=== PATIENT | female | born 1990 | race Caucasian/White ===

== ENCOUNTER 2024-07-18 13:44 | Inpatient (IN) | payer OTHER ==
[2024-07-18 14:20] VITALS: BMI 18.4
[2024-07-18] MEDS ORDERED: methaDONE HCL 10 MG TABLET (FOR DETOX USE ONLY) PO PRN (14:36)
[2024-07-18] MEDS ORDERED: P-EPHED 60MG/TRIPROLIDI 2.5MG TABLET PO PRN (14:40)
[2024-07-18] MEDS ORDERED: NICOTINE POLACRILEX 2 MG LOZENGE BC PRN (14:40)
[2024-07-18] MEDS ORDERED: POLYETHYLENE GLYCOL (HEALTHYLAX) 3350 17 GM PACKET PO PRN (14:40)
[2024-07-18] MEDS ORDERED: MAGNESIUM HYDROX 2400MG/30ML ORAL SUSPENSION 30 ML CUP PO PRN (14:40)
[2024-07-18] MEDS ORDERED: guaiFENesin 600 MG TABLET.ER (FP) PO PRN (14:40)
[2024-07-18] MEDS ORDERED: BENZOCAINE/MENTHOL (CHLORASEPTIC ) LOZENGE MM PRN (14:40)
[2024-07-18] MEDS ORDERED: DICYCLOMINE HCL 10 MG CAPSULE PO PRN (14:40)
[2024-07-18] MEDS ORDERED: ACETAMINOPHEN 325 MG TABLET (FP) PO PRN (14:40)
[2024-07-18] MEDS ORDERED: NALOXONE (NARCAN) HCL 4 MG/0.1 ML SPRAY NS PRN (14:40)
[2024-07-18] MEDS ORDERED: IBUPROFEN 400 MG TABLET (FP) PO PRN (14:40)
[2024-07-18] MEDS ORDERED: BENZONATATE 200 MG CAPSULE PO PRN (14:40)
[2024-07-18] MEDS ORDERED: chlordiazePOXIDE HCL 25 MG CAPSULE ONE (15:16)
[2024-07-18] MEDS ORDERED: cloNIDine HCL 0.1 MG TABLET ONE (15:17)
[2024-07-18] MEDS ORDERED: methaDONE HCL 10 MG TABLET (FOR DETOX USE ONLY) ONE (15:17)
[2024-07-18] MEDS ORDERED: levETIRAcetam 500 MG TABLET (FP) PO ONE (15:17)
[2024-07-18] MEDS: methaDONE HCL 10 MG TABLET (FOR DETOX USE ONLY) PO ONE (15:21)
[2024-07-18] MEDS: chlordiazePOXIDE HCL 25 MG CAPSULE PO ONE (15:26)
[2024-07-18] MEDS: cloNIDine HCL 0.1 MG TABLET PO PRN (15:26)
[2024-07-18] MEDS: levETIRAcetam 500 MG TABLET (FP) PO SCH (15:27)
[2024-07-18] MEDS: chlordiazePOXIDE HCL 25 MG CAPSULE PO SCH (17:11)
[2024-07-18] MEDS: BISMUTH SUBSALICYLATE 524 MG/30 ML PO PRN (17:20)
[2024-07-18] MEDS: ONDANSETRON *ODT* 4 MG TABLET SL PRN (20:10)
[2024-07-18] MEDS: METHOCARBAMOL 500 MG TABLET PO PRN (20:34)
[2024-07-18] MEDS: NICOTINE POLACRILEX 2 MG GUM BUC PRN (21:14)
[2024-07-18] MEDS: MELATONIN 5 MG TABLETS PO SCH (22:35)
[2024-07-18] MEDS: IBUPROFEN 600 MG TABLET (FP) PO PRN (22:35)
[2024-07-18] MEDS: THIAMINE 100 MG TABLET PO SCH (22:35)
[2024-07-18] MEDS: LOPERAMIDE HCL 2 MG CAPSULE PO PRN (23:29)
[2024-07-19] MEDS: TRIMETHOBENZAMIDE HCL 200MG/2ML INJ IM PRN (05:57)
[2024-07-19] MEDS: methaDONE HCL 10 MG TABLET (FOR DETOX USE ONLY) PO ONE (09:37)
[2024-07-19] MEDS: PRENATAL VITAMINS W/ FOLIC ACID TABLET (FP) PO SCH (09:37)
[2024-07-19] MEDS: NICOTINE 7 MG/24 HOURS TOPICAL PATCH TD SCH (09:38)
[2024-07-19 09:39] LABS: POTASSIUM 3.7 mmol/L (3.5-5.1)
[2024-07-19 09:43] LABS: HEMOGLOBIN 13.5 GM/dL (10.7-15.3); MCH 28.9 pg (25.7-33.7); MCHC 32.8 g/dl (32.0-36.0); MEAN CELL VOLUME 87.9 fl (80-96); MEAN PLT VOLUME 7.8 fl (7.5-11.1); PLATELET COUNT 337 10^3/uL (134-434); RBC 4.66 M/mm3 (3.60-5.2); RDW 15.2 % (11.6-15.6); WHITE BLOOD COUNT 9.2 K/mm3 (4.0-10.0)
[2024-07-19 09:56] LABS: ALBUMIN 3.3 g/dl (3.4-5.0); BLOOD UREA NITROGEN 11.3 mg/dL (7-18); CALCIUM 9.2 mg/dL (8.5-10.1)
[2024-07-19 09:59] LABS: CREATININE 0.7 mg/dL (0.55-1.3)
[2024-07-19 10:01] LABS: BILIRUBIN,TOTAL 0.8 mg/dL (0.2-1); TOT PROT 7.9 g/dl (6.4-8.2)
[2024-07-19] MEDS: cloNIDine HCL 0.1 MG TABLET PO SCH (10:21)
[2024-07-19] MEDS: methaDONE HCL 10 MG TABLET PO ONE (10:21)
[2024-07-19] MEDS: chlordiazePOXIDE HCL 25 MG CAPSULE PO PRN (21:28)
[2024-07-19] MEDS: SUVOREXANT 10 MG TABLET PO PRN (21:42)
[2024-07-20] MEDS: chlordiazePOXIDE HCL 25 MG CAPSULE PO SCH (04:04)
[2024-07-20] MEDS: methaDONE 40 MG, methaDONE 20 MG PO ONE (09:06)
[2024-07-20] MEDS ORDERED: methaDONE HCL 10 MG TABLET PO ONE (10:00)
[2024-07-20] MEDS ORDERED: COLLOIDAL OATMEAL 1 BAR EACH TP PRN (10:10)
[2024-07-20] MEDS ORDERED: diazePAM 5 MG TABLET PO PRN (10:16)
[2024-07-20] MEDS: diazePAM 5 MG TABLET PO PRN (11:23)
[2024-07-20] MEDS: PHENAZOPYRIDINE HCL 100 MG TABLET (FP) PO ONE (12:18)
[2024-07-20] MEDS: diazePAM 5 MG TABLET PO SCH (14:02)
[2024-07-20 18:55] LABS: URINE APPEARANCE CLEAR; URINE BILIRUBIN NEGATIVE (NEGATIVE); URINE COLOR YELLOW; URINE GLUCOSE (UA) NEGATIVE (NEGATIVE); URINE KETONE NEGATIVE (NEGATIVE); URINE LEUK ESTERASE NEGATIVE (NEGATIVE); URINE NITRITE NEGATIVE (NEGATIVE); URINE PROTEIN NEGATIVE (NEGATIVE); URINE UROBILINOGEN 0.2 mg/dL (0.2-1.0)
[2024-07-20] MEDS: SUVOREXANT 15 MG TABLET PO PRN (22:29)
[2024-07-21] MEDS ORDERED: chlordiazePOXIDE HCL 10 MG CAPSULE PO PRN
[2024-07-21] MEDS ORDERED: cloNIDine HCL 0.1 MG TABLET PO PRN
[2024-07-21] MEDS ORDERED: chlordiazePOXIDE HCL 10 MG CAPSULE PO SCH (05:00)
[2024-07-21] MEDS: diazePAM 5 MG TABLET PO SCH (06:36)
[2024-07-21] MEDS: methaDONE 40 MG, methaDONE 30 MG PO ONE (09:11)
[2024-07-21] MEDS ORDERED: methaDONE HCL 10 MG TABLET (FOR DETOX USE ONLY) PO ONE (10:00)
[2024-07-21] MEDS: FLUCONAZOLE 50 MG TABLET PO ONE (12:51)
[2024-07-21] MEDS: MINERAL OIL/PETROLAT/WATER TOPICAL CREAM 113 GM JAR TP SCH (13:12)
[2024-07-21] MEDS: ONDANSETRON *ODT* 4 MG TABLET SL PRN (13:28)
[2024-07-21] MEDS: CLOTRIMAZOLE 1% VAGINAL CREAM WITH APPLICATOR 45 GM TUBE VG SCH (23:20)
[2024-07-22] MEDS ORDERED: chlordiazePOXIDE HCL 10 MG CAPSULE PO SCH (05:00)
[2024-07-22] MEDS: diazePAM 5 MG TABLET PO ONE (06:19)
[2024-07-22] MEDS: methaDONE HCL 40 MG DISPERSABLE TABLET PO ONE (09:16)
[2024-07-22] MEDS: MAG HYDROX/AL HYDROX/SIMETH 30 ML UNIT-DOSE CUP PO PRN (11:21)
[2024-07-23] MEDS ORDERED: chlordiazePOXIDE HCL 10 MG CAPSULE PO ONE (05:00)
[2024-07-23] MEDS: levETIRAcetam 500 MG TABLET (FP) PO ONE (08:33)
[2024-07-23] MEDS: methaDONE 80 MG, methaDONE 10 MG PO ONE (09:03)
[2024-07-23 09:17] VITALS: RESP 18
[2024-07-23] MEDS ORDERED: methaDONE HCL 10 MG TABLET (FOR DETOX USE ONLY) PO ONE (10:00)
[2024-07-23] MEDS ORDERED: methaDONE 80 MG, methaDONE 10 MG PO ONE (10:00)
[2024-07-23 13:04] VITALS: BP 98/63; PULSE 76; TEMP 97.8
== END 2024-07-23 14:38 | disposition home or self-care (01) | DRG 773 ==
LOC: YASAS 13:44 → Y6N 14:55
PROVIDERS: ADMIT Allergy & Immunology; ATTEND Allergy & Immunology
PROC: HZ2ZZZZ Detoxification Services for Substance Abuse Treatment (ICD-10-PCS; principal; 2024-07-18)
DX: F11.23 Opioid dependence with withdrawal (principal); F13.230 Sedative, hypnotic or anxiolytic dependence with withdrawal, uncomplicated; F14.20 Cocaine dependence, uncomplicated; F15.10 Other stimulant abuse, uncomplicated; F17.210 Nicotine dependence, cigarettes, uncomplicated; F19.282 Other psychoactive substance dependence with psychoactive substance-induced sleep disorder; F19.280 Other psychoactive substance dependence with psychoactive substance-induced anxiety disorder; F19.24 Other psychoactive substance dependence with psychoactive substance-induced mood disorder; F43.10 Post-traumatic stress disorder, unspecified; F41.9 Anxiety disorder, unspecified; G40.909 Epilepsy, unspecified, not intractable, without status epilepticus; N89.8 Other specified noninflammatory disorders of vagina; R63.6 Underweight; Z68.1 Body mass index [BMI] 19.9 or less, adult
CPT/HCPCS: 36415; 80053; 80305; 80307; 81003; 81025; 85027; 86780; 93005; 93010; Q0162

== ENCOUNTER 2024-07-23 14:32 | Inpatient (IN) | payer OTHER ==
[2024-07-23] MEDS ORDERED: NALOXONE (NARCAN) HCL 4 MG/0.1 ML SPRAY NS PRN (14:34)
[2024-07-23] MEDS ORDERED: guaiFENesin 600 MG TABLET.ER (FP) PO PRN (14:34)
[2024-07-23] MEDS ORDERED: LOPERAMIDE HCL 2 MG CAPSULE PO PRN (14:34)
[2024-07-23] MEDS ORDERED: ACETAMINOPHEN 325 MG TABLET (FP) PO PRN (14:34)
[2024-07-23] MEDS ORDERED: MAGNESIUM HYDROX 2400MG/30ML ORAL SUSPENSION 30 ML CUP PO PRN (14:34)
[2024-07-23] MEDS ORDERED: hydrOXYzine PAMOATE 25 MG CAPSULE (FP) PO PRN (14:34)
[2024-07-23] MEDS ORDERED: MAG HYDROX/AL HYDROX/SIMETH 30 ML UNIT-DOSE CUP PO PRN (14:34)
[2024-07-23] MEDS ORDERED: BENZOCAINE/MENTHOL (CHLORASEPTIC ) LOZENGE MM PRN (14:34)
[2024-07-23] MEDS ORDERED: BENZONATATE 200 MG CAPSULE PO PRN (14:34)
[2024-07-23] MEDS: NICOTINE POLACRILEX 2 MG GUM BUC PRN (17:35)
[2024-07-23] MEDS: levETIRAcetam 500 MG TABLET (FP) PO SCH (22:24)
[2024-07-23] MEDS: MELATONIN 5 MG TABLETS PO SCH (22:24)
[2024-07-23] MEDS: THIAMINE 100 MG TABLET PO SCH (22:24)
[2024-07-24] MEDS: methaDONE 80 MG, methaDONE 10 MG PO SCH (05:40)
[2024-07-24] MEDS ORDERED: methaDONE HCL 10 MG TABLET PO SCH (06:00)
[2024-07-24] MEDS: PRENATAL VITAMINS W/ FOLIC ACID TABLET (FP) PO SCH (09:32)
[2024-07-24] MEDS: NICOTINE 7 MG/24 HOURS TOPICAL PATCH TD SCH (09:32)
[2024-07-25] MEDS: IBUPROFEN 400 MG TABLET (FP) PO PRN (01:03)
[2024-07-25] MEDS: IBUPROFEN 600 MG TABLET (FP) PO PRN (14:21)
[2024-07-26] MEDS: POLYETHYLENE GLYCOL (HEALTHYLAX) 3350 17 GM PACKET PO PRN (19:04)
[2024-07-26] MEDS: SUVOREXANT 15 MG TABLET PO PRN (21:07)
[2024-07-27] MEDS: LIDOCAINE 4% PATCH TP SCH (15:57)
[2024-07-27] MEDS: LIDOCAINE PATCH REMOVAL MC SCH (21:05)
[2024-07-28] MEDS ORDERED: methaDONE HCL 40 MG DISPERSABLE TABLET PO SCH (06:00)
[2024-07-28] MEDS ORDERED: SUVOREXANT 15 MG TABLET PO PRN (22:00)
[2024-07-29] MEDS ORDERED: methaDONE HCL 40 MG DISPERSABLE TABLET PO SCH (06:00)
[2024-07-29] MEDS: methaDONE 80 MG, methaDONE 20 MG PO SCH (06:10)
[2024-07-31] MEDS: NICOTINE POLACRILEX 2 MG LOZENGE BC PRN (07:21)
[2024-07-31] MEDS: SUVOREXANT 15 MG TABLET PO PRN (21:11)
[2024-08-04] MEDS ORDERED: methaDONE HCL 10 MG TABLET PO SCH (18:00)
[2024-08-05] MEDS ORDERED: OXYMETAZOLINE 0.05% NASAL SOLUTION 15 ML BOTTLE NS PRN (16:01)
[2024-08-05] MEDS ORDERED: guaiFENesin 600 MG TABLET.ER (FP) PO PRN (16:01)
[2024-08-05] MEDS ORDERED: BENZONATATE 200 MG CAPSULE PO PRN (16:01)
[2024-08-05] MEDS ORDERED: P-EPHED 60MG/TRIPROLIDI 2.5MG TABLET PO PRN (18:48)
[2024-08-05] MEDS: METHOCARBAMOL 500 MG TABLET PO PRN (21:25)
[2024-08-05] MEDS ORDERED: METHOCARBAMOL 500 MG TABLET ONE (21:25)
[2024-08-18] MEDS: DOCUSATE SODIUM 100 MG CAPSULE (FP) PO SCH (15:49)
[2024-08-19] MEDS: methaDONE HCL 40 MG DISPERSABLE TABLET PO SCH (06:22)
[2024-08-20 07:09] VITALS: BP 99/69; PULSE 72; RESP 18; TEMP 97.9
[2024-08-20] MEDS: methaDONE HCL 40 MG DISPERSABLE TABLET PO ONE (10:03)
== END 2024-08-20 13:15 | disposition home or self-care (01) | DRG 772 ==
LOC: YASAS 14:32 → Y3NR 14:34 → Y5N 07-24 13:23 → Y3NR 08-06 14:02 → Y5N 08-18 12:19
PROVIDERS: ADMIT Psychiatry & Neurology Pain Medicine; ATTEND Psychiatry & Neurology Pain Medicine
PROC: HZ42ZZZ Group Counseling for Substance Abuse Treatment, Cognitive-Behavioral (ICD-10-PCS; principal; 2024-07-23)
DX: F11.20 Opioid dependence, uncomplicated (principal); F13.20 Sedative, hypnotic or anxiolytic dependence, uncomplicated; F14.20 Cocaine dependence, uncomplicated; F15.10 Other stimulant abuse, uncomplicated; F17.210 Nicotine dependence, cigarettes, uncomplicated; F19.282 Other psychoactive substance dependence with psychoactive substance-induced sleep disorder; F19.280 Other psychoactive substance dependence with psychoactive substance-induced anxiety disorder; F41.9 Anxiety disorder, unspecified; U07.1 COVID-19; G40.909 Epilepsy, unspecified, not intractable, without status epilepticus; B18.2 Chronic viral hepatitis C; Z20.828 Contact with and (suspected) exposure to other viral communicable diseases; Z86.19 Personal history of other infectious and parasitic diseases; Z88.8 Allergy status to other drugs, medicaments and biological substances
CPT/HCPCS: 0241U-QW; 36415; 82962; 86803; 87522